=== PATIENT | female | born 1965 | race Caucasian/White ===

== ENCOUNTER 2023-08-13 10:24 | Day surgery (SDC) | payer BC ==
[~2023-08-13] VITALS: Ht 175.3 cm; Wt 63.6 kg
[2023-08-13 10:51] VITALS: BP 142/81
[2023-08-13 11:08] LABS: BASOPHILS 0.6 % (0-2); EOSINOPHILS 4.4 % (0-6); HEMATOCRIT 42.2 % (35.0-50.0); HEMOGLOBIN 13.7 g/dL (12.0-18.0); LYMPHOCYTES 32.8 % (24-44); MCH 28.9 (27-36); MCHC 32.4 g/dl (30-36); MCV 89.1 fl (81-99); MONOCYTES 6.6 % (0-12); NEUTROPHILS 55.6 % (39-80); PLATELET COUNT 210 K/uL (140-440); RBC 4.73 M/ul (4.3-5.7); RDW 13.5 (10.5-15.0)
[2023-08-13 11:22] LABS: ALBUMIN 3.9 g/dL (3.4-5.0); ALBUMIN/GLOBULIN RATIO 1.11 (1.1-2.4); BILIRUBIN, TOTAL 0.2 ng/dL (0.2-1.0); BUN/CREATININE RATIO 23.45 (6.0-28.6); CALCIUM 9.2 mg/dL (8.5-10.1); CREATININE, SERUM 0.81 mg/dL (0.55-1.02); PROTEIN, TOTAL 7.4 g/dL (6.4-8.2)
--- NOTE | 2023-08-13 13:49 | NUR ---
08/13/23 3845 Lizzette Partida 1344-PATIENT ARRIVED TO PACU ON 6L MASK RR EVEN SHALLOW BREATHING AT 10. PATIENT REACTIVE TO VERBAL STIMULI WILL SLIGHTLY OPEN EYES REMAINS VERY DROWSY AND DOZES BACK TO SLEEP. SB HR 50'S. IVF INFUSING. NO DRAINAGE TO PAD ON NOSE. HOB ELEVATED
[2023-08-13 14:25] VITALS: BP 133/59
--- NOTE | 2023-08-13 14:34 | NUR ---
PT ARRIVES BACK TO DAY SURGERY ROOM #5. PT REPORTS NO PAIN OR NAUSEA. RESP EVEN AND UNLABORED. PT'S AND DR. FOSTER AT THE BEDSIDE. DR. FOSTER UPDATED ABOUT PT'S BLEEDING FROM RIGHT NARE. DR. FOSTER STATES THE PT WILL HAVE SOME "OOZING" FROM THE NARE. PT PROVIDED ICE WATER PER HER REQUEST. BED IN THE LOWEST POSITION, BED RAIL UP X1, CALL LIGHT WITH PT, PT'S AT THE BEDSIDE.
--- NOTE | 2023-08-13 14:57 | NUR ---
PT'S DRIP PAD CHANGED IT WAS SATURATED. PT REPORTS SHE WANTS TO USE THE RESTROOM. PT SITTING UP ON THE EDGE OF THE BED. PT REPORTS SOME DIZZINESS THAT IS RESOLVING SHE SITS THERE. PT ABLE TO AMBULATE TO THE RESTROOM WITH 1 PA. PT ABLE TO URINATE 1000 ML OF CLEAR YELLOW URINE. PT AMBULATED BACK TO BED. TOLERATED WELL. SCD'S PLACED, WARM BLANKETS PROVIDED. CALL LIGHT WITH PT.
--- NOTE | 2023-08-13 15:12 | NUR ---
DRIP PAD CHANGED AGAIN IT WAS SATURATED WITH LIGHT RED DRAINAGE.
[2023-08-13] MEDS ORDERED: TRAMADOL HCL50 MG PO (15:21)
[2023-08-13 15:29] VITALS: BP 133/79
--- NOTE | 2023-08-13 15:31 | NUR ---
PT RESTING IN BED WITH HER AT THE BEDSIDE. PT EATING YOGURT PRETZLES AND DRINKING WATER. WATCHING PT'S DRIP PAD PRIOR TO PT LEAVING. PT REPORTS HAVING A HEADACHE THAT SHE RATES A 3/10. PT DENIES NEEDING ANYTHING FOR PAIN AT THIS TIME. CALL LIGHT WITH PT, AT THE BEDSIDE.
--- NOTE | 2023-08-13 15:43 | NUR ---
PT PRESCRIPTION CALLED INTO [facility] IN [place] PER PT REQUEST.
--- NOTE | 2023-08-13 16:10 | NUR ---
PT AMBULATED TO THE RESTROOM AND BACK TO BED WITH SBA. PT TOLERATED WELL. PT REQUESTING PAIN MEDICATION FOR HER HEADACHE. PT HAS NO FURTHER REQUESTS AT THIS TIME.
[2023-08-13 16:34] VITALS: BP 123/78
--- NOTE | 2023-08-13 16:40 | NUR ---
PT REPORTS SHE IS READY TO GO HOME. PT'S DRIP PAD HAS MINIMAL BLEEDING ON IT. PT DRESSING HERSELF WITH HER AT THE BEDSIDE.
--- NOTE | 2023-08-13 17:18 | NUR ---
1649- DC INSTRUCTIONS PROVIDED TO PT AND PT'S . PT IS QUESTIONING IF SHE IS TO DO SINUS RINSES. 1652- DR. FOSTER CALLED AND REPORTS THE PT IS TO START DOING SINUS RINSES STARTING 24 HOURS AFTER SURGERY AND CAN DO THEM 4 TIMES PER DAY BUT STATES THE PT DOES NOT HAVE TO DO IT THIS OFTEN. 1653- PT UPDATED ON THIS. PT AGREEABLE TO THIS. 1655- PT ABLE TO AMBULATE TO THE RESTROOM AND INTO THE WHEELCHAIR. PT TOLERATED WELL. PT REPORTS HER PAIN IS A 2/10 AND STATES THIS IS TOLERABLE FOR HER. DENIES NAUSEA. PT TAKEN TO THE FRONT OF THE HOSPITAL AND ASSISTED INTO THE PASSENGER SIDE OF THE VEHICLE. PT THANKFUL FOR HER CARE.
--- NOTE | 2023-08-18 08:38 | OR ---
[facility] [address], [place] [address] Signed DATE OF OPERATION: 08/13/2023 SURGEON: Lee Foster MD PREOPERATIVE DIAGNOSES: Chronic pansinusitis, nasal and sinus polyposis. POSTOPERATIVE DIAGNOSES: Chronic pansinusitis, nasal and sinus polyposis. PROCEDURES: 1. Bilateral endoscopic frontal ethmoidectomy, 59129-99. 2. Left sphenoidotomy, 64801. 3. Bilateral endoscopic maxillary antrostomies with removal of tissue, 81790-45. INDICATIONS: This 58-year-old female had sinus surgery 10 or 20 years ago for polyps done fairly well, but had slow regrowth of polyps with nasal obstruction, congestion, and especially severe headaches and pain with any kind of air travel or traveling in the car. A CT scan and endoscopic exam showed that the frontal sinuses, which were very large, were totally closed off from below with large recurrence of polyps blocking the ethmoids and the frontal sinuses. Also had a right maxillary sinus full of polyps and the left sphenoid sinus, which was the larger of the two, was blocked off also with polyps. Because of medical failure to improve her symptoms the surgery was indicated. PROCEDURE IN DETAIL: The patient was placed in supine position, had an orotracheal intubation, was placed under general anesthesia. About 3 mL of 1% lidocaine 1:200,000 epinephrine were injected on either side at the base of the middle turbinates and lateral wall. The patient had a residual rodolfo bullosa filled with polyps on the right side. A sickle knife was used to incise that getting into it, taking down the lateral wall and all the polyps in between in the confluence of sinuses of the frontal recess, anterior ethmoids and maxillary sinus. A curved blade was used to get into the maxillary sinus to evacuate polyps also. The frontal sinus instruments using them with a 70 degree scope to pick them out of the maxillary sinus. The sphenoid sinus was much smaller on that PATIENT NAME: ERICA WILKERSON OPERATIVE REPORT DATE OF : 67 REPORT #: [id number] PHYSICIAN: LEE FOSTER MD PCP: NO PRIMARY CARE PHYSICIAN REPORT IS CONFIDENTIAL AND NOT TO BE RELEASED WITHOUT AUTHORIZATION [facility] [address], [place] [address] Signed right side. A posterior ethmoidectomy and polyp removal opened up that complex. A 70 degree scope was used to visualize the frontal recess. The frontal sinus was opened by removing polyps and also frontal sinus instruments inserted into the cavity to remove all of the tissue. This then was done on the left side. Less extensive in the maxillary sinus, more extensive from blocking the sphenoid of the sinus, which had a lot of polyps and they were removed with the microdebrider. Also, the frontal sinus on the left side tightly closed off with a lot of polyps stuffed up into the floor of the frontal sinus. Those were removed with a Thru-Cut ethmoid punch suction. The microdebrider with a curved blade until all the sinuses was well opened and aerated and all of polyps removed. Estimated blood loss was about 100 mL. There were no complications. The patient went to recovery room in good condition. MD AISHA Story/MODL /[id number] Copies: ~ PATIENT NAME: ERICA WILKERSON OPERATIVE REPORT DATE OF : 67 REPORT #: [id number] PHYSICIAN: LEE FOSTER MD PCP: NO PRIMARY CARE PHYSICIAN REPORT IS CONFIDENTIAL AND NOT TO BE RELEASED WITHOUT AUTHORIZATION
== END 2023-08-13 16:55 | disposition home or self-care (01) ==
LOC: DS 10:24
PROVIDERS: ATTEND Otolaryngology
PROC: 099Q4ZZ Drainage of Right Maxillary Sinus, Percutaneous Endoscopic Approach (ICD-10-PCS; 2023-08-13)
PROC: 09BV4ZZ Excision of Left Ethmoid Sinus, Percutaneous Endoscopic Approach (ICD-10-PCS; 2023-08-13)
PROC: 09BU4ZZ Excision of Right Ethmoid Sinus, Percutaneous Endoscopic Approach (ICD-10-PCS; 2023-08-13)
PROC: 09CX4ZZ Extirpation of Matter from Left Sphenoid Sinus, Percutaneous Endoscopic Approach (ICD-10-PCS; 2023-08-13)
PROC: 099R4ZZ Drainage of Left Maxillary Sinus, Percutaneous Endoscopic Approach (ICD-10-PCS; principal; 2023-08-13 12:00)
DX: J32.4 Chronic pansinusitis (principal); J33.8 Other polyp of sinus
CPT/HCPCS: 00160; 36415; 80053; 85025; A9270; J0131; J0690; J1100; J2405; J2704; J3010; J3490; J7121